=== PATIENT | male | born 1950 | race Caucasian/White ===

== ENCOUNTER 2021-04-18 01:18 | Inpatient (IN) | payer MEDICARE, MEDICAID ==
[~2021-04-18] VITALS: Ht 167.6 cm; Wt 73.3 kg
[2021-04-18 04:47] LABS: HEMATOCRIT. 41.6 % (42.0-52.0); HEMOGLOBIN. 13.8 g/dL (14.0-18.0); MEAN CORPUSCULAR HEMOGLOBIN 31.3 pg (28.0-32.0); MEAN CORPUSCULAR VOLUME 94.2 fL (80.0-94.0); MEAN PLATELET VOLUME 8.1 fl (7.4-10.4); PLATELET 215 x1000/uL (130-400); RED BLOOD CELL COUNT 4.42 mill/uL (4.7-6.1); RED CELL DISTRIBUTION WIDTH 15.2 % (11.6-14.6)
[2021-04-18 04:59] LABS: CHLORIDE 98 mEq/L (98-107)
[2021-04-18 07:13] LABS: PLATELET ESTIMATE NORMAL
[2021-04-18] MEDS ORDERED: CEFTRIAXONE 1 G PREMIX 50 ML IV ONE (09:00)
[2021-04-18] MEDS ORDERED: VANCOMYCIN 1 G PREMIX 200 ML IV SCH (09:15)
[2021-04-18] MEDS ORDERED: ACETAMINOPHEN 325MG TABLET PO NR (10:24)
[2021-04-18] MEDS: METOPROLOL TARTRATE 25MG TABLET PO SCH ×2 (10:50→21:00)
[2021-04-18] MEDS: ASPIRIN 81MG TABLET PO SCH (10:50)
[2021-04-18] MEDS: FOLIC ACID/VITAMIN B COMP W-C TABLET PO SCH (10:50)
[2021-04-18] MEDS ORDERED: MAGNESIUM/ALUMINUM HYDROXIDE/SIMETHICONE 30ML UDC PO PRN (14:15)
[2021-04-18] MEDS ORDERED: HYDROCODONE/ACETAMINOPHEN 5/325MG TABLET PO PRN (14:15)
[2021-04-18] MEDS ORDERED: IPRATROPIUM/ALBUTEROL 0.5-3(2.5)MG/3ML NEB NEB PRN (14:15)
[2021-04-18] MEDS ORDERED: ACETAMINOPHEN 650MG SUPP PR PRN (14:15)
[2021-04-18] MEDS ORDERED: NA PHOS,M-B/NA PHOS,DI-BA ENEMA 118ML PR PRN (14:15)
[2021-04-18] MEDS ORDERED: DIPHENHYDRAMINE 50MG/ML VIAL IV PRN (14:15)
[2021-04-18] MEDS ORDERED: ACETAMINOPHEN 325MG TABLET PO PRN (14:15)
[2021-04-18] MEDS ORDERED: ONDANSETRON HCL 4MG/2ML INJ IV PRN (14:15)
[2021-04-18] MEDS ORDERED: DOCUSATE SODIUM 100MG CAPSULE PO PRN (14:15)
[2021-04-18] MEDS ORDERED: LORAZEPAM 2MG/ML CPJ IV PRN (14:15)
[2021-04-18] MEDS ORDERED: GUAIFENESIN 200MG/10ML SUGAR FREE UDC PO PRN (14:15)
[2021-04-18] MEDS ORDERED: CLONIDINE 0.1MG TABLET PO PRN (14:15)
[2021-04-18] MEDS ORDERED: LORAZEPAM 0.5MG TABLET PO PRN (14:15)
[2021-04-18 14:53] LABS: INR 1.2
[2021-04-18] MEDS ORDERED: HEPARIN 5000 UNITS/ML VIAL SUBCUT SCH (15:00)
[2021-04-18] MEDS ORDERED: PIPERACILLIN/TAZ 3.375G PREMIX 50 ML IV NR (15:00)
[2021-04-18] MEDS ORDERED: VANCOMYCIN 500 MG PREMIX 100 ML IV NR (16:00)
[2021-04-18] MEDS ORDERED: AMLODIPINE 5MG TABLET PO SCH (21:00)
[2021-04-18] MEDS: FAMOTIDINE 20MG TABLET PO SCH (21:00)
[2021-04-18 21:43] LABS: CREATINE KINASE MB FRACTION 1.1 ng/mL (0.5-3.6)
[2021-04-18 22:02] LABS: CHLORIDE 96 mEq/L (98-107)
[2021-04-18 22:03] LABS: HEPATITIS B SURFACE ANTIGEN NEGATIVE
[2021-04-18] MEDS ORDERED: PIPERACILLIN/TAZOBACTAM 3.375 G in DEXTROSE 5% WATER 50 ML IV SCH (23:00)
[2021-04-19 00:45] VITALS: BP 126/59
[2021-04-19 02:23] VITALS: BP 126/59
[2021-04-19] MEDS ORDERED: AMLO10TA4 PO (06:21)
[2021-04-19] MEDS ORDERED: LEVVL SQ (06:21)
[2021-04-19] MEDS ORDERED: CALC667C MT (06:21)
[2021-04-19] MEDS ORDERED: LOPHC2 PO (06:21)
[2021-04-19] MEDS ORDERED: CALC667C PO (06:21)
[2021-04-19] MEDS ORDERED: ATOR10TA PO (06:21)
[2021-04-19] MEDS ORDERED: OMEP20TA15 PO (06:21)
[2021-04-19] MEDS ORDERED: DEXTROSE 50% WATER 50ML SYRINGE IV PRN (07:00)
[2021-04-19] MEDS: BLOOD SUGAR DIAGNOSTIC STRIP TEST SCH ×4 (07:10→20:03)
[2021-04-19] MEDS: INSULIN LISPRO 100 UNITS/ML SUBCUT SCH ×4 (07:50→20:03)
[2021-04-19 08:00] VITALS: BP 145/54
[2021-04-19 08:16] LABS: CHLORIDE 102 mEq/L (98-107)
[2021-04-19 08:27] LABS: CREATINE KINASE 76 IU/L (39-308)
[2021-04-19 08:30] LABS: CREATINE KINASE MB FRACTION 1.4 ng/mL (0.5-3.6)
[2021-04-19] MEDS: FOLIC ACID/VITAMIN B COMP W-C TABLET PO SCH (10:08)
[2021-04-19] MEDS: LEVOTHYROXINE SODIUM 25MCG TABLET PO SCH (10:09)
[2021-04-19] MEDS: METOPROLOL TARTRATE 25MG TABLET PO SCH ×2 (10:09→20:43)
[2021-04-19] MEDS: HEPARIN 5000 UNITS/ML VIAL SUBCUT SCH ×2 (10:09→20:43)
[2021-04-19] MEDS: ASPIRIN 81MG TABLET PO SCH (10:09)
[2021-04-19 10:40] LABS: BASOPHILS % 0.7 % (0.0-2.0); HEMATOCRIT. 40.7 % (42.0-52.0); HEMOGLOBIN. 13.6 g/dL (14.0-18.0); LYMPHOCYTES % 7.4 % (20.0-50.0); MEAN CORPUSCULAR HEMOGLOBIN 31.5 pg (28.0-32.0); MEAN CORPUSCULAR VOLUME 94.3 fL (80.0-94.0); MEAN PLATELET VOLUME 8.4 fl (7.4-10.4); MONOCYTES % 9.8 % (2.0-8.0); NEUTROPHILS % 81.1 % (40.0-76.0); PLATELET 207 x1000/uL (130-400); RED BLOOD CELL COUNT 4.31 mill/uL (4.7-6.1); RED CELL DISTRIBUTION WIDTH 15.6 % (11.6-14.6)
[2021-04-19] MEDS: PIPERACILLIN/TAZOBACTAM 3.375 G in DEXTROSE 5% WATER 50 ML IV SCH ×2 (10:43→20:43)
[2021-04-19 12:00] VITALS: BP 134/46
[2021-04-19] MEDS: CALCIUM ACETATE 667MG CAPSULE PO SCH ×2 (13:10→17:32)
[2021-04-19 16:00] VITALS: BP 134/49
[2021-04-19 20:00] VITALS: BP 163/63
[2021-04-19] MEDS: FAMOTIDINE 20MG TABLET PO SCH (20:43)
[2021-04-20] VITALS: BP 134/46
[2021-04-20 01:32] LABS: CLARITY URINE CLOUDY (CLEAR); COLOR URINE YELLOW (YELLOW); KETONES URINE NEGATIVE (NEGATIVE); LEUKOCYTE ESTERASE URINE TRACE (NEGATIVE); NITRITE URINE NEGATIVE (NEGATIVE); OCCULT BLOOD URINE TRACE (NEGATIVE); PH URINE >=9.0 (4.5-8.0); PROTEIN URINE 2+ (NEGATIVE); SPECIFIC GRAVITY URINE 1.012 (1.005-1.030); UROBILINOGEN URINE 0.2 E.U./dL (0.2-1.0)
[2021-04-20 04:00] VITALS: BP 155/55
[2021-04-20] MEDS: LEVOTHYROXINE SODIUM 25MCG TABLET PO SCH (06:12)
[2021-04-20] MEDS: BLOOD SUGAR DIAGNOSTIC STRIP TEST SCH ×4 (06:20→20:58)
[2021-04-20 07:27] LABS: BASOPHILS % 0.9 % (0.0-2.0); EOSINOPHILS % 3.1 % (0.0-5.0); HEMATOCRIT. 40.6 % (42.0-52.0); HEMOGLOBIN. 13.8 g/dL (14.0-18.0); LYMPHOCYTES % 15.7 % (20.0-50.0); MEAN CORPUSCULAR HEMOGLOBIN 32.1 pg (28.0-32.0); MEAN CORPUSCULAR VOLUME 94.2 fL (80.0-94.0); MEAN PLATELET VOLUME 8.5 fl (7.4-10.4); MONOCYTES % 10.6 % (2.0-8.0); NEUTROPHILS % 69.7 % (40.0-76.0); PLATELET 247 x1000/uL (130-400); RED BLOOD CELL COUNT 4.31 mill/uL (4.7-6.1); RED CELL DISTRIBUTION WIDTH 15.4 % (11.6-14.6)
[2021-04-20] MEDS: INSULIN LISPRO 100 UNITS/ML SUBCUT SCH ×4 (07:30→20:59)
[2021-04-20 07:49] LABS: PHOSPHORUS 4.3 mg/dL (2.5-4.9)
[2021-04-20 07:54] LABS: T4 FREE 1.03 ng/dL (0.76-1.46)
[2021-04-20 08:00] VITALS: BP 142/45
[2021-04-20] MEDS: FOLIC ACID/VITAMIN B COMP W-C TABLET PO SCH (09:57)
[2021-04-20] MEDS: ATORVASTATIN CALCIUM 10MG TABLET PO SCH (09:58)
[2021-04-20] MEDS: ASPIRIN 81MG TABLET PO SCH (09:58)
[2021-04-20] MEDS: CALCIUM ACETATE 667MG CAPSULE PO SCH ×3 (09:58→17:07)
[2021-04-20] MEDS: HEPARIN 5000 UNITS/ML VIAL SUBCUT SCH ×2 (09:58→21:04)
[2021-04-20] MEDS: METOPROLOL TARTRATE 25MG TABLET PO SCH ×2 (10:00→21:05)
[2021-04-20] MEDS: PIPERACILLIN/TAZOBACTAM 3.375 G in DEXTROSE 5% WATER 50 ML IV SCH ×2 (10:01→21:03)
[2021-04-20 12:00] VITALS: BP 152/47
[2021-04-20] MEDS ORDERED: FLUC100T MT (14:17)
[2021-04-20] MEDS ORDERED: LEVO250T58 MT (14:17)
[2021-04-20] MEDS: FLUCONAZOLE 100MG TABLET PO SCH (15:27)
[2021-04-20 16:00] VITALS: BP 135/45
[2021-04-20 20:00] VITALS: BP 149/99
[2021-04-20] MEDS: FAMOTIDINE 20MG TABLET PO SCH (21:04)
[2021-04-20] MEDS ORDERED: NALOXONE HCL 0.4MG/ML VIAL IV PRN (21:15)
[2021-04-21] VITALS: BP 158/55
[2021-04-21 04:03] VITALS: BP 160/63
[2021-04-21] MEDS: LEVOTHYROXINE SODIUM 25MCG TABLET PO SCH (06:16)
[2021-04-21] MEDS: BLOOD SUGAR DIAGNOSTIC STRIP TEST SCH (06:21)
[2021-04-21] MEDS: INSULIN LISPRO 100 UNITS/ML SUBCUT SCH (07:44)
[2021-04-21 08:00] VITALS: BP 164/59
[2021-04-21] MEDS: CALCIUM ACETATE 667MG CAPSULE PO SCH (09:05)
[2021-04-21] MEDS: METOPROLOL TARTRATE 25MG TABLET PO SCH (09:06)
[2021-04-21] MEDS: ATORVASTATIN CALCIUM 10MG TABLET PO SCH (09:06)
[2021-04-21] MEDS: FLUCONAZOLE 100MG TABLET PO SCH (09:06)
[2021-04-21] MEDS: FOLIC ACID/VITAMIN B COMP W-C TABLET PO SCH (09:06)
[2021-04-21] MEDS: ASPIRIN 81MG TABLET PO SCH (09:06)
[2021-04-21] MEDS: PIPERACILLIN/TAZOBACTAM 3.375 G in DEXTROSE 5% WATER 50 ML IV SCH (09:07)
[2021-04-21] MEDS: HEPARIN 5000 UNITS/ML VIAL SUBCUT SCH (09:07)
[2021-04-21 11:12] VITALS: BP 164/59
== END 2021-04-21 12:02 | disposition home or self-care (01) | DRG 871 ==
LOC: ER 01:18 → 5WST 11:24 → EDBEDREQSVC 11:26 → EDBEDREQ 11:26 → EDBEDREQTM 11:26 → ENRESERV 12:02 → CANRESERV 12:02 → CANBEDREQ 12:42 → SUPCPDRO 15:44 → MICUSO 22:26 → 6WST 22:45
PROVIDERS: ADMIT Internal Medicine; ATTEND Internal Medicine
PROC: 5A1D70Z Performance of Urinary Filtration, Intermittent, Less than 6 Hours Per Day (ICD-10-PCS; principal; 2021-04-18)
PROC: 5A1D70Z Performance of Urinary Filtration, Intermittent, Less than 6 Hours Per Day (ICD-10-PCS; 2021-04-21)
DX: A41.9 Sepsis, unspecified organism (principal); N18.6 End stage renal disease; I13.2 Hypertensive heart and chronic kidney disease with heart failure and with stage 5 chronic kidney disease, or end stage renal disease; N39.0 Urinary tract infection, site not specified; N25.81 Secondary hyperparathyroidism of renal origin; E11.22 Type 2 diabetes mellitus with diabetic chronic kidney disease; E87.5 Hyperkalemia; I50.9 Heart failure, unspecified; Z20.822 Contact with and (suspected) exposure to COVID-19; E11.51 Type 2 diabetes mellitus with diabetic peripheral angiopathy without gangrene; E11.40 Type 2 diabetes mellitus with diabetic neuropathy, unspecified; E11.319 Type 2 diabetes mellitus with unspecified diabetic retinopathy without macular edema; D64.9 Anemia, unspecified; E78.5 Hyperlipidemia, unspecified; K82.8 Other specified diseases of gallbladder; N40.0 Benign prostatic hyperplasia without lower urinary tract symptoms; G89.29 Other chronic pain; K21.9 Gastro-esophageal reflux disease without esophagitis; Z93.1 Gastrostomy status; Z99.2 Dependence on renal dialysis; Z86.73 Personal history of transient ischemic attack (TIA), and cerebral infarction without residual deficits; Z85.72 Personal history of non-Hodgkin lymphomas; Z82.49 Family history of ischemic heart disease and other diseases of the circulatory system; Z79.899 Other long term (current) drug therapy; Z79.82 Long term (current) use of aspirin; Z79.4 Long term (current) use of insulin
CPT/HCPCS: 36415; 71045; 74176; 76700; 80048; 80053; 81003; 82550; 82553; 82962; 83036; 83605; 84100; 84145; 84153; 84439; 84443; 84484; 85025; 86705; 86709; 86803; 86850; 86900; 87340; 87426; 87804; 93005; 93306; 93970; 97162; 99285; C9803; J0696; J1644; J1815; J2543; J3370; J7040; J7060; U0003; U0005; G0103

== ENCOUNTER 2021-11-07 08:40 | Day surgery (SDC) | payer MEDICARE, MEDICAID ==
[~2021-11-07] VITALS: Ht 177.8 cm; Wt 75.3 kg
[2021-11-07 08:14] LABS: BASOPHILS % 0.9 % (0.0-2.0); EOSINOPHILS % 4.1 % (0.0-5.0); HEMATOCRIT. 39.6 % (42.0-52.0); HEMOGLOBIN. 13.4 g/dL (14.0-18.0); LYMPHOCYTES % 13.9 % (20.0-50.0); MEAN CORPUSCULAR HEMOGLOBIN 32.2 pg (28.0-32.0); MEAN CORPUSCULAR VOLUME 94.9 fL (80.0-94.0); MEAN PLATELET VOLUME 8.2 fl (7.4-10.4); MONOCYTES % 8.6 % (2.0-8.0); NEUTROPHILS % 72.5 % (40.0-76.0); PLATELET 213 x1000/uL (130-400); RED BLOOD CELL COUNT 4.17 mill/uL (4.7-6.1); RED CELL DISTRIBUTION WIDTH 14.3 % (11.6-14.6)
[2021-11-07 08:26] LABS: INR 1.1; PARTIAL THROMBOPLASTIN TIME 28.2 sec (23.4-31.0); PROTHROMBIN TIME 11.9 sec (9.6-11.0)
[~2021-11-07 08:40] MED LIST: AMLO10TA4 PO; ATOR10TA PO; CALC667C MT; LEVO50TA MT; LOPHC2 PO; OMEP20TA15 PO
[2021-11-07] MEDS ORDERED: SODIUM CHLORIDE 0.9% 500 ML IV SCH (09:30)
[2021-11-07] MEDS ORDERED: POLYMYXIN B SULFATE 500000 UNITS/VIAL ONE (09:56)
[2021-11-07] MEDS ORDERED: SKIN ADHESIVE 0.7 GM EA TOP ONE (09:56)
[2021-11-07] MEDS ORDERED: BUPIVACAINE HCL/PF 0.25% (2.5MG/ML) 10ML ONE (09:56)
[2021-11-07] MEDS ORDERED: BACITRACIN 15GM TUBE TOP ONE ×2 (09:56→09:58)
[2021-11-07] MEDS ORDERED: LIDOCAINE HCL/EPINEPHRINE 1%-EPI 1:100,000 20 ML VIAL ONE (09:57)
[2021-11-07] MEDS ORDERED: ROCURONIUM BROMIDE 10MG/ML VIAL 5ML IV ONE (10:36)
[2021-11-07] MEDS ORDERED: FENTANYL CITRATE/PF 50MCG/ML 2ML VIAL ONE (10:36)
[2021-11-07] MEDS ORDERED: ETOMIDATE 2MG/ML 10ML VIAL IV ONE (10:36)
[2021-11-07] MEDS ORDERED: SUCCINYLCHOLINE CHLORIDE 200MG/10ML IV ONE (10:36)
[2021-11-07] MEDS ORDERED: MIDAZOLAM HCL 2 MG/2 ML VIAL ONE (10:37)
[2021-11-07] MEDS ORDERED: ASPI-1497 PO (11:02)
[2021-11-07] MEDS ORDERED: LEVVL SQ (11:03)
[2021-11-07] MEDS ORDERED: GLYCOPYRROLATE 0.2 MG/ML 2ML VIAL ONE ×4 (11:17→12:24)
[2021-11-07] MEDS ORDERED: PROPOFOL 200MG/20ML VIAL IV ONE (11:34)
[2021-11-07] MEDS ORDERED: HYDROMORPHONE HCL/PF 2MG/ML CPJ IV PRN (11:45)
[2021-11-07] MEDS ORDERED: MEPERIDINE HCL/PF 25MG/ML CPJ IV PRN (11:45)
[2021-11-07] MEDS ORDERED: ONDANSETRON HCL 4MG/2ML INJ IV PRN (11:45)
[2021-11-07] MEDS ORDERED: LABETALOL 5MG/ML SYR 20 MG/4 ML SYRINGE IV PRN (11:45)
[2021-11-07] MEDS ORDERED: NEOSTIGMINE METHYLSULFATE 1MG/ML 10 ML VIAL ONE (12:24)
== END 2021-11-07 15:30 | disposition home or self-care (01) ==
LOC: OR 08:40
PROVIDERS: ATTEND Thoracic Surgery (Cardiothoracic Vascular Surgery)
DX: J90 Pleural effusion, not elsewhere classified (principal); C85.28 Mediastinal (thymic) large B-cell lymphoma, lymph nodes of multiple sites; I12.0 Hypertensive chronic kidney disease with stage 5 chronic kidney disease or end stage renal disease; R59.0 Localized enlarged lymph nodes; E10.22 Type 1 diabetes mellitus with diabetic chronic kidney disease; N18.6 End stage renal disease; E78.5 Hyperlipidemia, unspecified; Z79.899 Other long term (current) drug therapy; Z98.890 Other specified postprocedural states; Z20.822 Contact with and (suspected) exposure to COVID-19
CPT/HCPCS: 36415; 39402; 71045; 80048; 85025; 85610; 85730; 86850; 86900; 86901; 86920; 87426; 88305; 88331; C9803; J0330; J2250; J2704; J2710; J3010; J3490; J7040

== ENCOUNTER → 2022-07-17 | Outpatient (CLI) | payer MEDICARE, MEDICAID ==
[~2022-07-17] MED LIST changes: +ASPI-1497 PO; +LEVVL SQ
== END | disposition home or self-care (01) ==
LOC: US 08:27
PROVIDERS: ATTEND Internal Medicine
DX: J90 Pleural effusion, not elsewhere classified (principal)
CPT/HCPCS: 76604

== ENCOUNTER → 2022-08-15 | Day surgery (SDC) | payer MEDICARE, MEDICAID ==
[~2022-08-15] MED LIST changes: +SODIUM BICARBONATE 4% (2.4MEQ) 5ML VIAL IV ONE
== END | disposition home or self-care (01) ==
LOC: RAD 09:01
PROVIDERS: ATTEND Internal Medicine
DX: J90 Pleural effusion, not elsewhere classified (principal); R06.02 Shortness of breath; Z79.82 Long term (current) use of aspirin; Z79.4 Long term (current) use of insulin; Z79.899 Other long term (current) drug therapy; Z98.890 Other specified postprocedural states; Z82.49 Family history of ischemic heart disease and other diseases of the circulatory system
CPT/HCPCS: 32555; 71045; 82945; 83615; 84157; 87070; 87116; 87205; 88108; 89050; J3490; Z7610

== ENCOUNTER 2023-03-11 15:03 | Inpatient (IN) | payer MEDICARE, MEDICAID ==
[~2023-03-11] VITALS: Ht 165.1 cm; Wt 73.0 kg
[~2023-03-11 15:03] MED LIST changes: -SODIUM BICARBONATE 4% (2.4MEQ) 5ML VIAL IV ONE
[2023-03-11 23:00] VITALS: BP 144/59; PULSE 82; RESP 18; TEMP 97.9
[2023-03-12] VITALS (11 sets, daily range): BP systolic 125–170; BP diastolic 35–75; PULSE 66–79; RESP 15–20; TEMP 96.6–98.2
[2023-03-12] MEDS ORDERED: FOLI1TAB33 PO (01:41)
[2023-03-12] MEDS ORDERED: DEXTROSE 50% WATER 50ML SYRINGE IV PRN (01:45)
[2023-03-12 03:11] LABS: HEMATOCRIT. 34.3 % (42.0-52.0); HEMOGLOBIN. 11.4 g/dL (14.0-18.0); MEAN CORPUSCULAR HEMOGLOBIN 32.6 pg (28.0-32.0); MEAN CORPUSCULAR HGB CONC 33.4 g/dL (31.0-37.0); MEAN CORPUSCULAR VOLUME 97.6 fL (80.0-94.0); MEAN PLATELET VOLUME 8.3 fl (7.4-10.4); RED BLOOD CELL COUNT 3.51 mill/uL (4.7-6.1)
[2023-03-12 03:23] LABS: INR 1.2; PROTHROMBIN TIME 12.4 sec (9.6-11.0)
[2023-03-12 03:30] LABS: POTASSIUM 4.5 mEq/L (3.5-5.1)
[2023-03-12 03:38] LABS: CALCIUM 8.4 mg/dL (8.5-10.1)
[2023-03-12 03:42] LABS: DIFFERENTIAL COMMENT 1
[2023-03-12 03:53] LABS: CREATININE 7.2 mg/dL (0.6-1.3)
[2023-03-12] MEDS ORDERED: VANCOMYCIN 1G PREMIX 200 ML IV NR (04:00)
[2023-03-12] MEDS ORDERED: VANCOMYCIN 750MG PREMIX 150 ML IV NR (04:30)
[2023-03-12] MEDS: LEVOTHYROXINE SODIUM 50MCG TABLET PO SCH (07:20)
[2023-03-12] MEDS: BLOOD SUGAR DIAGNOSTIC STRIP TEST SCH ×4 (07:20→20:43)
[2023-03-12] MEDS: CALCIUM ACETATE 667MG CAPSULE PO SCH ×3 (07:50→17:20)
[2023-03-12] MEDS: INSULIN LISPRO 100 UNITS/ML SUBCUT SCH ×4 (07:50→21:00)
[2023-03-12] MEDS: METOPROLOL TARTRATE 25MG TABLET PO SCH ×2 (08:18→20:42)
[2023-03-12] MEDS: ASPIRIN 81MG TABLET PO SCH (08:18)
[2023-03-12] MEDS: AMLODIPINE 10MG TABLET PO SCH (08:19)
[2023-03-12] MEDS ORDERED: NALOXONE HCL 0.4MG/ML VIAL IV PRN (11:45)
[2023-03-12] MEDS ORDERED: IPRATROPIUM/ALBUTEROL 0.5-3(2.5)MG/3ML NEB HHN PRN (11:45)
[2023-03-12] MEDS ORDERED: ONDANSETRON HCL 4MG/2ML INJ IV PRN (11:45)
[2023-03-12] MEDS ORDERED: DOCUSATE SODIUM 100MG CAPSULE PO PRN (11:45)
[2023-03-12] MEDS ORDERED: CLONIDINE 0.1MG TABLET PO PRN (11:45)
[2023-03-12] MEDS ORDERED: HYDROCODONE/ACETAMINOPHEN 5/325MG TABLET PO PRN (11:45)
[2023-03-12] MEDS ORDERED: ACETAMINOPHEN 325MG TABLET PO PRN ×2 (11:45)
[2023-03-12 13:15] LABS: INDEX HEMOLYSI 1 (1-3); INDEX ICTERIC 1 (1-4); INDEX LIPEMIC 1 (1-3)
[2023-03-12 13:19] LABS: PLATELET 296 x1000/uL (130-400)
[2023-03-12 13:21] LABS: IRON 51 ug/dL (50-175); TOTAL IRON BINDING CAPACITY 134 ug/dL (250-450)
[2023-03-12 13:22] LABS: PLATELET ESTIMATE NORMAL
[2023-03-12 14:15] LABS: VITAMIN B12 SERUM 168 pg/mL (211-911)
[2023-03-12 14:46] LABS: FERRITIN 1112 ng/mL (22-322)
[2023-03-12 17:58] LABS: FOLIC ACID (FOLATE) SERUM > 20.00 ng/mL (>5.38)
[2023-03-12] MEDS: ATORVASTATIN CALCIUM 10MG TABLET PO SCH (20:41)
[2023-03-13] VITALS: BP 150/61; PULSE 72; RESP 20; TEMP 98.1
[2023-03-13 04:00] VITALS: BP 155/71; PULSE 81; RESP 20; TEMP 97.6
[2023-03-13] MEDS: INSULIN LISPRO 100 UNITS/ML SUBCUT SCH ×4 (06:55→21:54)
[2023-03-13] MEDS: BLOOD SUGAR DIAGNOSTIC STRIP TEST SCH ×4 (06:55→21:36)
[2023-03-13] MEDS: LEVOTHYROXINE SODIUM 50MCG TABLET PO SCH (06:56)
[2023-03-13] MEDS: CALCIUM ACETATE 667MG CAPSULE PO SCH ×3 (07:50→17:50)
[2023-03-13 08:00] VITALS: BP 139/52; PULSE 72; RESP 18; TEMP 97.7
[2023-03-13 08:02] LABS: POTASSIUM 4.9 mEq/L (3.5-5.1)
[2023-03-13] MEDS ORDERED: IOHEXOL-350 100 ML BOTTLE ONE (08:07)
[2023-03-13 08:09] LABS: BASOPHILS % 0.5 % (0.0-2.0); EOSINOPHILS % 2.5 % (0.0-5.0); HEMATOCRIT. 35.1 % (42.0-52.0); HEMOGLOBIN. 11.9 g/dL (14.0-18.0); LYMPHOCYTES % 9.9 % (20.0-50.0); MEAN CORPUSCULAR HEMOGLOBIN 32.5 pg (28.0-32.0); MEAN CORPUSCULAR HGB CONC 33.8 g/dL (31.0-37.0); MEAN CORPUSCULAR VOLUME 96.2 fL (80.0-94.0); MEAN PLATELET VOLUME 8.2 fl (7.4-10.4); MONOCYTES % 8.9 % (2.0-8.0); NEUTROPHILS % 78.2 % (40.0-76.0); PLATELET 287 x1000/uL (130-400); RED BLOOD CELL COUNT 3.65 mill/uL (4.7-6.1); RED CELL DISTRIBUTION WIDTH 14.7 % (11.6-14.6); WHITE BLOOD COUNT 9.6 x1000/uL (4.5-11.0)
[2023-03-13 08:12] LABS: CALCIUM 8.9 mg/dL (8.5-10.1)
[2023-03-13] MEDS: AMLODIPINE 10MG TABLET PO SCH (09:00)
[2023-03-13] MEDS: METOPROLOL TARTRATE 25MG TABLET PO SCH ×2 (09:00→21:00)
[2023-03-13] MEDS: ASPIRIN 81MG TABLET PO SCH (09:00)
[2023-03-13 12:00] VITALS: BP 158/42; PULSE 72; RESP 19; TEMP 97.7
[2023-03-13] MEDS ORDERED: VANCOMYCIN 1G PREMIX 200 ML IV NR (14:00)
[2023-03-13] MEDS ORDERED: INFLUENZA VACCINE 05/PF 0.5 ML SYRINGE IM ONE (15:00)
[2023-03-13 16:00] VITALS: BP 156/43; PULSE 65; RESP 18; TEMP 96.6
[2023-03-13 20:00] VITALS: BP 127/45; PULSE 69; RESP 20; TEMP 98.9
[2023-03-13] MEDS: ATORVASTATIN CALCIUM 10MG TABLET PO SCH (21:55)
[2023-03-14] VITALS (13 sets, daily range): BP systolic 105–155; BP diastolic 40–61; PULSE 59–91; RESP 16–20; TEMP 95.5–98.6
[2023-03-14] MEDS: BLOOD SUGAR DIAGNOSTIC STRIP TEST SCH ×4 (06:26→20:43)
[2023-03-14] MEDS: LEVOTHYROXINE SODIUM 50MCG TABLET PO SCH (06:27)
[2023-03-14] MEDS: CALCIUM ACETATE 667MG CAPSULE PO SCH ×2 (06:27→18:23)
[2023-03-14] MEDS: INSULIN LISPRO 100 UNITS/ML SUBCUT SCH ×3 (06:45→20:44)
[2023-03-14 07:27] LABS: BASOPHILS % 0.5 % (0.0-2.0); CALCIUM 8.8 mg/dL (8.5-10.1); EOSINOPHILS % 2.2 % (0.0-5.0); HEMOGLOBIN. 10.9 g/dL (14.0-18.0); LYMPHOCYTES % 9.3 % (20.0-50.0); MEAN CORPUSCULAR HEMOGLOBIN 32.8 pg (28.0-32.0); MEAN CORPUSCULAR HGB CONC 34.2 g/dL (31.0-37.0); MEAN CORPUSCULAR VOLUME 95.9 fL (80.0-94.0); MEAN PLATELET VOLUME 8.1 fl (7.4-10.4); MONOCYTES % 9.1 % (2.0-8.0); NEUTROPHILS % 78.9 % (40.0-76.0); PLATELET 294 x1000/uL (130-400); POTASSIUM 4.9 mEq/L (3.5-5.1); RED BLOOD CELL COUNT 3.34 mill/uL (4.7-6.1); RED CELL DISTRIBUTION WIDTH 14.5 % (11.6-14.6); WHITE BLOOD COUNT 11.3 x1000/uL (4.5-11.0)
[2023-03-14] MEDS ORDERED: POLYMYXIN B SULFATE 500000 UNITS/VIAL ONE (07:27)
[2023-03-14] MEDS ORDERED: BUPIVACAINE HCL/PF 0.5% (5MG/ML) 10ML ONE (07:27)
[2023-03-14] MEDS ORDERED: LIDOCAINE HCL 1% 10 MG/ML 10ML VIAL ONE ×2 (07:27→09:07)
[2023-03-14 07:32] LABS: PHOSPHORUS 5.9 mg/dL (2.5-4.9)
[2023-03-14 08:31] LABS: CREATININE 8.7 mg/dL (0.6-1.3)
[2023-03-14] MEDS: METOPROLOL TARTRATE 25MG TABLET PO SCH ×2 (09:00→20:43)
[2023-03-14] MEDS: AMLODIPINE 10MG TABLET PO SCH (09:00)
[2023-03-14] MEDS: ASPIRIN 81MG TABLET PO SCH (09:00)
[2023-03-14] MEDS ORDERED: ONDANSETRON HCL 4MG/2ML INJ ONE (09:07)
[2023-03-14] MEDS ORDERED: METOCLOPRAMIDE HCL 10MG/2ML VIAL ONE (09:07)
[2023-03-14] MEDS ORDERED: ROCURONIUM BROMIDE 10MG/ML VIAL 5ML IV ONE (09:07)
[2023-03-14] MEDS ORDERED: PROPOFOL 200MG/20ML VIAL IV ONE (09:07)
[2023-03-14] MEDS ORDERED: FENTANYL CITRATE/PF 50MCG/ML 2ML VIAL ONE (09:08)
[2023-03-14] MEDS ORDERED: PIPERACILLIN/TAZOBACTAM 3.375G in DEXT 5% WATER 50ML IV NR (10:00)
[2023-03-14] MEDS ORDERED: VANCOMYCIN HCL 1 GM/VIAL ONE (10:10)
[2023-03-14] MEDS ORDERED: VANCOMYCIN 1G PREMIX 200 ML IV NR (12:00)
[2023-03-14] MEDS: ATORVASTATIN CALCIUM 10MG TABLET PO SCH (20:45)
[2023-03-14 21:03] LABS: HEMATOCRIT 29.9 % (42.0-52.0); HEMOGLOBIN 10.2 g/dL (14.0-18.0); MEAN CORPUSCULAR HEMOGLOBIN 32.6 pg (28.0-32.0); MEAN CORPUSCULAR HGB CONC 34.1 g/dL (31.0-37.0); MEAN CORPUSCULAR VOLUME 95.8 fL (80.0-94.0); PLATELET 279 x1000/uL (130-400); RED BLOOD CELL COUNT 3.12 mill/uL (4.7-6.1); RED CELL DISTRIBUTION WIDTH 14.9 % (11.6-14.6)
[2023-03-14 21:30] LABS: ERYTHROCYTE SEDIMENTATION RATE 108 mm/hr (0-20)
[2023-03-15] VITALS: BP 145/54; PULSE 77; RESP 17; TEMP 97.5
[2023-03-15 00:12] LABS: CALCIUM 8.5 mg/dL (8.5-10.1); POTASSIUM 3.8 mEq/L (3.5-5.1)
[2023-03-15 00:17] LABS: CREATININE 5.3 mg/dL (0.6-1.3)
[2023-03-15 04:00] VITALS: BP 112/74; PULSE 78; RESP 20; TEMP 99.2
[2023-03-15] MEDS: BLOOD SUGAR DIAGNOSTIC STRIP TEST SCH ×4 (07:04→20:50)
[2023-03-15] MEDS: CALCIUM ACETATE 667MG CAPSULE PO SCH ×3 (07:06→18:21)
[2023-03-15] MEDS: LEVOTHYROXINE SODIUM 50MCG TABLET PO SCH (07:06)
[2023-03-15 08:00] VITALS: BP_SYST 121; BP_SYST 137; BP_DIAS 41; BP_DIAS 82; PULSE 83; RESP 18; TEMP 98.3
[2023-03-15] MEDS: METOPROLOL TARTRATE 25MG TABLET PO SCH ×2 (08:40→20:49)
[2023-03-15] MEDS: AMLODIPINE 10MG TABLET PO SCH (08:41)
[2023-03-15] MEDS: ASPIRIN 81MG TABLET PO SCH (08:41)
[2023-03-15] MEDS: INSULIN LISPRO 100 UNITS/ML SUBCUT SCH ×4 (08:51→20:50)
[2023-03-15 10:50] LABS: HEMATOCRIT. 28.3 % (42.0-52.0); HEMOGLOBIN. 9.6 g/dL (14.0-18.0); MEAN CORPUSCULAR HEMOGLOBIN 32.8 pg (28.0-32.0); MEAN CORPUSCULAR HGB CONC 33.9 g/dL (31.0-37.0); MEAN CORPUSCULAR VOLUME 96.8 fL (80.0-94.0); MEAN PLATELET VOLUME 8.1 fl (7.4-10.4); PLATELET 262 x1000/uL (130-400); RED BLOOD CELL COUNT 2.92 mill/uL (4.7-6.1); RED CELL DISTRIBUTION WIDTH 14.8 % (11.6-14.6); WHITE BLOOD COUNT 10.3 x1000/uL (4.5-11.0)
[2023-03-15] MEDS ORDERED: VANCOMYCIN 1G PREMIX 200 ML IV NR (11:00)
[2023-03-15 11:03] LABS: DIFFERENTIAL COMMENT 1
[2023-03-15 11:30] LABS: CALCIUM 8.5 mg/dL (8.5-10.1); POTASSIUM 4.8 mEq/L (3.5-5.1)
[2023-03-15 12:00] VITALS: BP 128/96; PULSE 70; RESP 18; TEMP 97.8
[2023-03-15 12:33] LABS: CREATININE 6.6 mg/dL (0.6-1.3)
[2023-03-15 16:00] VITALS: BP 111/32; PULSE 74; RESP 18; TEMP 97.9
[2023-03-15] MEDS ORDERED: INFLUENZA VACCINE 05/PF 0.5 ML SYRINGE IM ONE (16:15)
[2023-03-15 20:00] VITALS: BP 126/47; PULSE 74; RESP 18; TEMP 99.3
[2023-03-15] MEDS: ATORVASTATIN CALCIUM 10MG TABLET PO SCH (20:48)
[2023-03-16] VITALS (14 sets, daily range): BP systolic 96–131; BP diastolic 32–58; PULSE 72–91; RESP 16–19; TEMP 96.4–98.4
[2023-03-16] MEDS: BLOOD SUGAR DIAGNOSTIC STRIP TEST SCH ×4 (06:59→20:48)
[2023-03-16] MEDS: INSULIN LISPRO 100 UNITS/ML SUBCUT SCH ×4 (07:00→20:48)
[2023-03-16] MEDS: CALCIUM ACETATE 667MG CAPSULE PO SCH ×3 (07:01→17:47)
[2023-03-16] MEDS: LEVOTHYROXINE SODIUM 50MCG TABLET PO SCH (07:01)
[2023-03-16] MEDS: ASPIRIN 81MG TABLET PO SCH (08:45)
[2023-03-16] MEDS: METOPROLOL TARTRATE 25MG TABLET PO SCH ×2 (08:45→20:42)
[2023-03-16] MEDS: AMLODIPINE 10MG TABLET PO SCH (08:45)
[2023-03-16 11:25] LABS: HEMATOCRIT. 26.4 % (42.0-52.0); HEMOGLOBIN. 8.8 g/dL (14.0-18.0); MEAN CORPUSCULAR HEMOGLOBIN 32.4 pg (28.0-32.0); MEAN CORPUSCULAR HGB CONC 33.5 g/dL (31.0-37.0); MEAN CORPUSCULAR VOLUME 96.8 fL (80.0-94.0); MEAN PLATELET VOLUME 8.8 fl (7.4-10.4); PLATELET 234 x1000/uL (130-400); RED BLOOD CELL COUNT 2.72 mill/uL (4.7-6.1); RED CELL DISTRIBUTION WIDTH 14.7 % (11.6-14.6); WHITE BLOOD COUNT 13.7 x1000/uL (4.5-11.0)
[2023-03-16 11:30] LABS: DIFFERENTIAL COMMENT 1
[2023-03-16 13:09] LABS: CALCIUM 8.6 mg/dL (8.5-10.1); POTASSIUM 5.9 mEq/L (3.5-5.1)
[2023-03-16 13:15] LABS: PHOSPHORUS 5.4 mg/dL (2.5-4.9)
[2023-03-16 13:18] LABS: CREATININE 7.8 mg/dL (0.6-1.3)
[2023-03-16 14:40] LABS: PLATELET ESTIMATE NORMAL
[2023-03-16 16:29] LABS: PLATELET ESTIMATE NORMAL
[2023-03-16 19:08] LABS: POTASSIUM 4.2 mEq/L (3.5-5.1)
[2023-03-16] MEDS: ATORVASTATIN CALCIUM 10MG TABLET PO SCH (20:42)
[2023-03-17] VITALS: BP 116/45; PULSE 80; RESP 20; TEMP 98.7
[2023-03-17 04:00] VITALS: BP 105/33; PULSE 81; RESP 20; TEMP 97.8
[2023-03-17] MEDS: LEVOTHYROXINE SODIUM 50MCG TABLET PO SCH (06:40)
[2023-03-17] MEDS: BLOOD SUGAR DIAGNOSTIC STRIP TEST SCH (07:10)
[2023-03-17] MEDS: INSULIN LISPRO 100 UNITS/ML SUBCUT SCH (07:50)
[2023-03-17] MEDS: CALCIUM ACETATE 667MG CAPSULE PO SCH (07:50)
[2023-03-17 08:00] VITALS: BP 95/35; PULSE 87; RESP 18; TEMP 97.9
[2023-03-17] MEDS: ASPIRIN 81MG TABLET PO SCH (08:59)
[2023-03-17] MEDS: AMLODIPINE 10MG TABLET PO SCH (09:00)
[2023-03-17] MEDS: METOPROLOL TARTRATE 25MG TABLET PO SCH (09:00)
[2023-03-17 10:23] VITALS: BP 95/52; PULSE 87; TEMP 97.9; O2SAT 97
[2023-03-17 15:30] LABS: HEPATITIS B SURFACE ANTIGEN NEGATIVE (Negative)
[2023-03-18 18:25] LABS: HEPATITIS A AB IGM NEGATIVE (NEGATIVE); HEPATITIS B CORE AB IGM NEGATIVE (Negative); HEPATITIS C AB NON REACTIVE (Neg) (Negative)
== END 2023-03-17 12:00 | disposition home or self-care (01) | DRG 239 ==
LOC: 6EST 21:30
PROVIDERS: ADMIT Internal Medicine; ATTEND Internal Medicine
PROC: 5A1D70Z Performance of Urinary Filtration, Intermittent, Less than 6 Hours Per Day (ICD-10-PCS; 2023-03-12)
PROC: 5A1D70Z Performance of Urinary Filtration, Intermittent, Less than 6 Hours Per Day (ICD-10-PCS; 2023-03-13)
PROC: 0Y6M0Z5 Detachment at Right Foot, Complete 2nd Ray, Open Approach (ICD-10-PCS; principal; 2023-03-14)
PROC: 0Y6M0Z6 Detachment at Right Foot, Complete 3rd Ray, Open Approach (ICD-10-PCS; 2023-03-14)
PROC: 0Y6M0Z7 Detachment at Right Foot, Complete 4th Ray, Open Approach (ICD-10-PCS; 2023-03-14)
PROC: 0Y6M0Z8 Detachment at Right Foot, Complete 5th Ray, Open Approach (ICD-10-PCS; 2023-03-14)
PROC: 5A1D70Z Performance of Urinary Filtration, Intermittent, Less than 6 Hours Per Day (ICD-10-PCS; 2023-03-15)
DX: E11.52 Type 2 diabetes mellitus with diabetic peripheral angiopathy with gangrene (principal); N18.6 End stage renal disease; I96 Gangrene, not elsewhere classified; I12.0 Hypertensive chronic kidney disease with stage 5 chronic kidney disease or end stage renal disease; E03.9 Hypothyroidism, unspecified; E78.5 Hyperlipidemia, unspecified; N40.0 Benign prostatic hyperplasia without lower urinary tract symptoms; Z99.2 Dependence on renal dialysis; D64.9 Anemia, unspecified; D72.829 Elevated white blood cell count, unspecified; E11.22 Type 2 diabetes mellitus with diabetic chronic kidney disease; Z79.4 Long term (current) use of insulin; Z79.82 Long term (current) use of aspirin; Z79.899 Other long term (current) drug therapy; Z82.49 Family history of ischemic heart disease and other diseases of the circulatory system; Z83.3 Family history of diabetes mellitus; Z85.72 Personal history of non-Hodgkin lymphomas; Z89.432 Acquired absence of left foot; Z93.1 Gastrostomy status
CPT/HCPCS: 36415; 73620; 73630; 75635; 80048; 80202; 82607; 82728; 82746; 82962; 83036; 83540; 83550; 83605; 83735; 84100; 84132; 84145; 85025; 85027; 85651; 86705; 86709; 87340; 88311; 90686; 90935; 97162; J1815; J2405; J2543; J2704; J2765; J3010; J3370; J3490; J7060; Q9967

== ENCOUNTER 2023-03-18 15:11 | Emergency (ER) | payer MEDICARE, MEDICAID ==
[~2023-03-18] VITALS: Ht 167.6 cm; Wt 68.0 kg
[~2023-03-18 15:11] MED LIST changes: +FOLI1TAB33 PO
[2023-03-18 15:22] VITALS: O2SAT 0
[2023-03-18] MEDS ORDERED: CALCIUM CHLORIDE 1,000 MG in DEXT 5% WATER 100 ML IV ONE (15:30)
[2023-03-18] MEDS ORDERED: INSULIN REGULAR (HUMULIN R) 300UNITS/3ML VIAL IV ONE (15:30)
[2023-03-18] MEDS ORDERED: SODIUM BICARBONATE 8.4% 1 MEQ/ML 50ML SYR IV ONE (15:30)
[2023-03-18] MEDS ORDERED: DEXTROSE 50% WATER 50ML SYRINGE IV ONE (15:30)
[2023-03-18 15:42] VITALS: BP 0/0; PULSE 0; RESP 0; TEMP 97.1
[2023-03-18 15:52] LABS: CHLORIDE 109 mEq/L (98-107); INDEX HEMOLYSI 3 (1-3); INDEX ICTERIC 1 (1-4); INDEX LIPEMIC 1 (1-3); POTASSIUM 5.9 mEq/L (3.5-5.1); SODIUM 145 mEq/L (136-145)
[2023-03-18 16:13] LABS: ALANINE AMINOTRANSFERASE 1175 IU/L (13-61); ALBUMIN 1.8 g/dL (3.4-5.0); BILIRUBIN TOTAL 0.6 mg/dL (0.1-1.0); CALCIUM 12.2 mg/dL (8.5-10.1); CARBON DIOXIDE 20 mEq/L (21-32); GLUCOSE 213 mg/dL (70-105); PROTEIN TOTAL 5.4 g/dL (6.0-8.3); UREA NITROGEN BLOOD 41 mg/dL (7-21)
[2023-03-18] MEDS ORDERED: SODIUM BICARBONATE 8.4% 1 MEQ/ML 50ML SYR IV NR (16:30)
[2023-03-18] MEDS ORDERED: INSULIN REGULAR (HUMULIN R) 300UNITS/3ML VIAL IV NR (16:30)
[2023-03-18] MEDS ORDERED: DEXTROSE 50% WATER 50ML SYRINGE IV NR (16:30)
[2023-03-18 16:40] LABS: ASPARTATE AMINOTRANSFERASE 2344 IU/L (15-37)
[2023-03-18 16:41] LABS: CREATININE 7.4 mg/dL (0.6-1.3); TROPONIN I HIGH SENSITIVITY 3417 ng/L (<78)
== END 2023-03-18 15:42 ==
LOC: ER 15:11
DX: I46.9 Cardiac arrest, cause unspecified (principal); E11.9 Type 2 diabetes mellitus without complications; I12.9 Hypertensive chronic kidney disease with stage 1 through stage 4 chronic kidney disease, or unspecified chronic kidney disease; N18.9 Chronic kidney disease, unspecified; Z98.890 Other specified postprocedural states
CPT/HCPCS: 99285; 92950; 31500; 80053; 82962; 84484; 36415; J3490; J7060